=== PATIENT | female | born 1955 | race Caucasian/White ===

== ENCOUNTER 2021-01-28 08:45 | Emergency (ER) | payer OTHER ==
[~2021-01-28] VITALS: Ht 157.5 cm; Wt 45.4 kg
[2021-01-28 09:37] LABS: ABSOLUTE NEUTROPHILS 9.1 thou/uL (1.4-8.2); BASOPHILS 0.8 % (0.0-2.0); EOSINOPHILS 0.4 % (0.0-3.0); HEMOGLOBIN 13.3 gm/dL (12.0-15.0); LYMPHOCYTES 14.9 % (24.0-44.0); MCH 31.6 pg (26.0-34.0); MCHC 33.2 g/dL (28.0-37.0); MCV 95.3 fL (80.0-100.0); MONOCYTES 6.4 % (1.0-8.0); PLATELET COUNT 106 thou/uL (150-400); POLYS 77.5 % (36.0-66.0); RDW 14.8 % (10.5-14.5); WBC 11.7 thou/uL (4.0-11.0)
[2021-01-28 09:42] LABS: CREATININE 7.4 mg/dL (0.6-1.0); POTASSIUM 3.9 mmol/L (3.5-5.1)
[2021-01-28 09:49] LABS: ALBUMIN 3.3 g/dL (3.4-5.0); DIRECT BILIRUBIN 0.2 mg/dL (<0.1-0.2); TOTAL BILIRUBIN 0.9 mg/dL (0.2-1.0); TOTAL PROTEIN 7.6 g/dL (6.4-8.2)
[2021-01-28] MEDS ORDERED: MIDODRINE HCL10 MG PO (10:28)
[2021-01-28] MEDS ORDERED: RENAPLEX-D TAB1 EACH PO (10:29)
[2021-01-28 11:42] VITALS: BP 118/50
--- NOTE | 2021-01-28 14:25 | EKG ---
[facility] [employer] [address] ELECTROCARDIOGRAM REPORT Name: DIMAMIRANDA ANN Room #: REG [facility]ER HAYWARDChapito#: [id number] Admission: 01/28/21 Attend Phys: Discharge: Date of : 59 Report #: [id number] [facility] ED Test Date: 2021-01-28 Test Time: 09:34:55 Pat Name: MIRANDA CH Department: Room: Gender: F Maintenance Helper Utility Engineer: kelly : 1955 Requested By: Carl Jaime Order Number: [id number] MD: Babar Lucero Measurements Intervals [place] Rate: 74 P: -41 MI: 267 QRS: -70 QRSD: 112 T: 101 QT: 416 QTc: 462 Interpretive Statements Sinus rhythm Prolonged MI interval Incomplete right bundle branch block LVH with IVCD, LAD and secondary repol abnrm Compared to ECG 02/23/1995 20:50:00 First degree AV block now present Intraventricular conduction delay now present Sinus bradycardia no longer present T-wave abnormality no longer present Electronically Signed On 01-28-2021 14:25:04 [employer]AT JOIN[employer] HEL[employer] by Babar Lucero [email or web address] <ELECTRONICALLY SIGNED> By: Babar Lucero MD 01/28/21 1425 0934 3 Babar Lucero MD /[email or web address]
== END 2021-01-28 11:34 | disposition home or self-care (01) ==
LOC: ER 08:45
PROVIDERS: Student in an Organized Health Care Education/Training Program
DX: N18.6 End stage renal disease (principal); Z20.822 Contact with and (suspected) exposure to COVID-19; R53.1 Weakness; N18.4 Chronic kidney disease, stage 4 (severe); Z88.6 Allergy status to analgesic agent; Z90.49 Acquired absence of other specified parts of digestive tract